=== PATIENT | male | born 1940 | race Caucasian/White ===

== ENCOUNTER 2022-11-24 09:06 | Inpatient (IN) ==
[2022-11-24] MEDS ORDERED: SODIUM CHLORIDE 0.9% 500 ML IV STA (09:39)
[2022-11-24] MEDS ORDERED: DILTIAZEM 25 MG/5 ML VIAL IV STA (09:39)
[2022-11-24 09:47] LABS: Basophils % 0.4 % (0.0-0.8); Eosinophils # 0.3 10*3/uL (0.0-0.87); Eosinophils % 4.1 % (0.00-10.9); Hematocrit 38.3 VOL% (42.0-52.0); Hemoglobin 12.2 GM/DL (14.0-18.0); Immature Granulocytes % 0.6 %; Immature Granulocytes Absolute 0.04 #; Lymphocytes # 1.9 10*3/uL (1.4-4.0); Lymphocytes % 26.2 % (21.2-54.2); Mean Corpuscular HGB Conc 31.9 GM/DL (32-36); Mean Corpuscular Volume 94.1 FL (87-102); Monocytes # 0.6 10*3/uL (0.11-0.8); Monocytes % 8.2 % (1.7-12.7); Neutrophils % 60.5 % (38.7-73.9); Platelet Count 241 T/CUMM (130-400); Red Blood Count 4.07 MC/CUMM (3.8-5.5); Red Cell Distribution Width 14.5 % (9.3-17.3); White Blood Count 7.1 T/CUMM (4-12)
[2022-11-24] MEDS: DILTIAZEM INJ 100 MG in SODIUM CHLORIDE 0.9% 100 ML IV SCH (09:53)
[2022-11-24 09:56] LABS: INR 0.9; PT Patient Result 10.3 SECS (10.1-12.1)
[2022-11-24 10:10] LABS: Alanine Aminotransferase 24 U/L (16-61); Albumin 3.7 G/DL (3.4-5.0); Alkaline Phosphatase 114 U/L (45-117); Aspartate Amino Transferase 13 U/L (0-37); Bilirubin,Total < 0.39 MG/DL (0.20-1.00); Blood Urea Nitrogen 29 MG/DL (7-18); Calcium 9.4 MG/DL (8.5-10.1); Carbon Dioxide 29 MMOL/L (21-32); Chloride 103 MMOL/L (98-107); Glucose 293 MG/DL (74-106); Osmolality,Calculated 291.7 MOS/KG (273-304); Potassium 5.2 MMOL/L (3.5-5.1); Sodium 138 MMOL/L (136-145)
[2022-11-24] MEDS ORDERED: GLUCAGON 1 MG VIAL IM PRN (10:43)
[2022-11-24] MEDS ORDERED: ONDANSETRON 4 MG/2 ML VIAL IV PRN (10:43)
[2022-11-24] MEDS ORDERED: ACETAMINOPHEN 325 MG TABLET PO PRN (10:43)
[2022-11-24] MEDS ORDERED: DEXTROSE 10% 250 ML BAG IV PRN (10:53)
[2022-11-24] MEDS ORDERED: MORPHINE 2 MG/1 ML SYRINGE IV PRN (11:04)
[2022-11-24] MEDS ORDERED: LEVALBUTEROL 1.25 MG/3 ML NEB RESP TX ONE (11:48)
[2022-11-24] MEDS ORDERED: GABAPENTIN 300 MG CAPSULE ONE (11:54)
[2022-11-24] MEDS: ENOXAPARIN 100 MG/ML SYRINGE SUBCUT SCH ×2 (11:57→22:06)
[2022-11-24] MEDS: LEVALBUTEROL 1.25 MG/3 ML NEB RESP TX SCH (13:00)
[2022-11-24] MEDS: INSULIN LISPRO 100 UNIT/ML SUBCUT SCH ×3 (13:34→22:20)
[2022-11-24] MEDS: GABAPENTIN 300 MG CAPSULE PO SCH ×2 (15:22→22:07)
[2022-11-24] MEDS: DILTIAZEM 60 MG TABLET PO SCH ×2 (16:35→22:07)
[2022-11-25] MEDS: LEVALBUTEROL 1.25 MG/3 ML NEB RESP TX SCH ×5 (00:23→20:06)
[2022-11-25] MEDS: DILTIAZEM 60 MG TABLET PO SCH (03:54)
[2022-11-25 05:12] LABS: Basophils % 0.5 % (0.0-0.8); Eosinophils # 0.4 10*3/uL (0.0-0.87); Eosinophils % 5.7 % (0.00-10.9); Hematocrit 33.5 VOL% (42.0-52.0); Hemoglobin 10.5 GM/DL (14.0-18.0); Immature Granulocytes % 0.5 %; Immature Granulocytes Absolute 0.03 #; Lymphocytes % 32.1 % (21.2-54.2); Mean Corpuscular HGB Conc 31.3 GM/DL (32-36); Mean Corpuscular Volume 94.1 FL (87-102); Mean Platelet Volume 9.9 FL (9.6-12.0); Monocytes # 0.5 10*3/uL (0.11-0.8); Monocytes % 7.8 % (1.7-12.7); Neutrophils % 53.4 % (38.7-73.9); Platelet Count 207 T/CUMM (130-400); Red Blood Count 3.56 MC/CUMM (3.8-5.5); Red Cell Distribution Width 14.6 % (9.3-17.3); White Blood Count 6.1 T/CUMM (4-12)
[2022-11-25 05:31] LABS: Alanine Aminotransferase 19 U/L (16-61); Albumin 3.1 G/DL (3.4-5.0); Alkaline Phosphatase 96 U/L (45-117); Aspartate Amino Transferase 9 U/L (0-37); Bilirubin,Total < 0.39 MG/DL (0.20-1.00); Blood Urea Nitrogen 25 MG/DL (7-18); Carbon Dioxide 27 MMOL/L (21-32); Chloride 107 MMOL/L (98-107); Cholesterol 114 MG/DL (50-200); Glucose 198 MG/DL (74-106); HDL Cholesterol 51 MG/DL (40-60); Osmolality,Calculated 288.4 MOS/KG (273-304); Potassium 4.4 MMOL/L (3.5-5.1); Risk Ratio 2.24; Sodium 140 MMOL/L (136-145); Triglycerides 109 MG/DL (2-150); VLDL Cholesterol 21.8 MG/DL
[2022-11-25 08:29] LABS: % Iron Saturation 22.9 % (18-50); Ferritin 31.1 ng/mL (26-388)
[2022-11-25 08:31] LABS: Folate 13.29 NG/ML (5.38-24.0)
[2022-11-25] MEDS: PANTOPRAZOLE 40 MG TABLET PO SCH (10:07)
[2022-11-25] MEDS: SOTALOL 80 MG TABLET PO SCH ×2 (10:07→21:59)
[2022-11-25] MEDS: GABAPENTIN 300 MG CAPSULE PO SCH ×3 (10:08→21:58)
[2022-11-25] MEDS: APIXABAN 5 MG TABLET PO SCH ×2 (10:08→21:59)
[2022-11-25] MEDS: CLOPIDOGREL 75 MG TABLET PO SCH (10:08)
[2022-11-25] MEDS: INSULIN LISPRO 100 UNIT/ML SUBCUT SCH ×4 (10:12→21:57)
[2022-11-25] MEDS: DILTIAZEM INJ 100 MG in SODIUM CHLORIDE 0.9% 100 ML IV SCH (11:03)
[2022-11-25] MEDS: SIMVASTATIN 40 MG TABLET PO SCH (21:57)
[2022-11-25] MEDS: oxyCODONE/ACETAMINOPHEN 5-325 MG TABLET PO SCH (21:58)
[2022-11-25] MEDS: LATANOPROST 0.005% OPH SOLN 2.5 ML BOTTLE BOTH EYES SCH (21:59)
[2022-11-25] MEDS: INSULIN GLARGINE 100 UNIT/ML SUBCUT SCH (21:59)
[2022-11-26] MEDS: LEVALBUTEROL 1.25 MG/3 ML NEB RESP TX SCH ×4 (00:50→19:15)
[2022-11-26 06:10] LABS: Calcium 9.4 MG/DL (8.5-10.1); Osmolality,Calculated 281.7 MOS/KG (273-304); Potassium 4.3 MMOL/L (3.5-5.1)
[2022-11-26] MEDS: CLOPIDOGREL 75 MG TABLET PO SCH (09:34)
[2022-11-26] MEDS: GABAPENTIN 300 MG CAPSULE PO SCH ×3 (09:34→20:45)
[2022-11-26] MEDS: PANTOPRAZOLE 40 MG TABLET PO SCH (09:35)
[2022-11-26] MEDS: oxyCODONE/ACETAMINOPHEN 5-325 MG TABLET PO SCH ×2 (09:35→20:45)
[2022-11-26] MEDS: SOTALOL 80 MG TABLET PO SCH ×2 (09:35→20:45)
[2022-11-26] MEDS: DULoxetine 30 MG CAPSULE PO SCH (09:35)
[2022-11-26] MEDS: APIXABAN 5 MG TABLET PO SCH ×2 (09:36→20:45)
[2022-11-26] MEDS: ROSUVASTATIN 20 MG TABLET PO SCH (09:38)
[2022-11-26] MEDS: INSULIN LISPRO 100 UNIT/ML SUBCUT SCH ×4 (09:38→20:45)
[2022-11-26] MEDS: DILTIAZEM INJ 100 MG in SODIUM CHLORIDE 0.9% 100 ML IV SCH (11:52)
[2022-11-26] MEDS: LATANOPROST 0.005% OPH SOLN 2.5 ML BOTTLE BOTH EYES SCH (20:45)
[2022-11-26] MEDS: INSULIN GLARGINE 100 UNIT/ML SUBCUT SCH (20:45)
[2022-11-26] MEDS: SIMVASTATIN 40 MG TABLET PO SCH (20:45)
[2022-11-26] MEDS: ZINC OXIDE PASTE 113 GM TUBE TOP SCH (20:45)
[2022-11-27] MEDS: LEVALBUTEROL 1.25 MG/3 ML NEB RESP TX SCH ×4 (00:21→19:39)
[2022-11-27] MEDS: SOTALOL 80 MG TABLET PO SCH ×2 (11:18→20:41)
[2022-11-27] MEDS: ROSUVASTATIN 20 MG TABLET PO SCH (11:18)
[2022-11-27] MEDS: DULoxetine 30 MG CAPSULE PO SCH (11:18)
[2022-11-27] MEDS: INSULIN LISPRO 100 UNIT/ML SUBCUT SCH ×4 (11:18→20:40)
[2022-11-27] MEDS: CLOPIDOGREL 75 MG TABLET PO SCH (11:19)
[2022-11-27] MEDS: ZINC OXIDE PASTE 113 GM TUBE TOP SCH ×2 (11:19→20:41)
[2022-11-27] MEDS: APIXABAN 5 MG TABLET PO SCH ×2 (11:19→20:41)
[2022-11-27] MEDS: oxyCODONE/ACETAMINOPHEN 5-325 MG TABLET PO SCH ×2 (11:19→20:40)
[2022-11-27] MEDS: DILTIAZEM INJ 100 MG in SODIUM CHLORIDE 0.9% 100 ML IV SCH (11:19)
[2022-11-27] MEDS: GABAPENTIN 300 MG CAPSULE PO SCH (11:19)
[2022-11-27] MEDS: PANTOPRAZOLE 40 MG TABLET PO SCH (11:19)
[2022-11-27] MEDS ORDERED: LACTOBACILLUS ACIDOPHILUS/BULGARICUS 1 PACKET PO SCH (15:00)
[2022-11-27] MEDS ORDERED: CLINDAMYCIN 300 MG CAPSULE PO SCH (15:00)
[2022-11-27] MEDS: LATANOPROST 0.005% OPH SOLN 2.5 ML BOTTLE BOTH EYES SCH (20:41)
[2022-11-27] MEDS: GABAPENTIN 600 MG TABLET PO SCH (20:41)
[2022-11-27] MEDS ORDERED: INSULIN GLARGINE 100 UNIT/ML SUBCUT SCH (21:00)
[2022-11-28] MEDS: LEVALBUTEROL 1.25 MG/3 ML NEB RESP TX SCH ×2 (00:15→08:14)
[2022-11-28 05:47] LABS: Basophils % 0.4 % (0.0-0.8); Eosinophils # 0.5 10*3/uL (0.0-0.87); Eosinophils % 6.2 % (0.00-10.9); Hemoglobin 11.4 GM/DL (14.0-18.0); Immature Granulocytes % 0.3 %; Immature Granulocytes Absolute 0.02 #; Lymphocytes # 1.9 10*3/uL (1.4-4.0); Lymphocytes % 26.3 % (21.2-54.2); Mean Corpuscular HGB Conc 31.7 GM/DL (32-36); Mean Corpuscular Volume 93.3 FL (87-102); Mean Platelet Volume 10.1 FL (9.6-12.0); Monocytes # 0.7 10*3/uL (0.11-0.8); Monocytes % 9.6 % (1.7-12.7); Neutrophils % 57.2 % (38.7-73.9); Platelet Count 230 T/CUMM (130-400); Red Blood Count 3.86 MC/CUMM (3.8-5.5); Red Cell Distribution Width 14.3 % (9.3-17.3); White Blood Count 7.4 T/CUMM (4-12)
[2022-11-28 06:22] LABS: Calcium 9.5 MG/DL (8.5-10.1); Osmolality,Calculated 280.5 MOS/KG (273-304); Potassium 4.4 MMOL/L (3.5-5.1)
[2022-11-28] MEDS ORDERED: propofoL 200 MG/20 ML VIAL IV ONE (07:23)
[2022-11-28] MEDS ORDERED: LIDOCAINE 2% 5 ML VIAL ONE (07:23)
[2022-11-28 08:06] VITALS: BP 132/78
[2022-11-28] MEDS: INSULIN LISPRO 100 UNIT/ML SUBCUT SCH (08:06)
[2022-11-28] MEDS ORDERED: FUROSEMIDE 40 MG TABLET PO SCH (09:00)
[2022-11-28] MEDS ORDERED: DAPAGLIFLOZIN 10 MG TABLET PO SCH (09:00)
[2022-11-28] MEDS: DULoxetine 30 MG CAPSULE PO SCH (10:14)
[2022-11-28] MEDS: SOTALOL 80 MG TABLET PO SCH (10:14)
[2022-11-28] MEDS: ROSUVASTATIN 20 MG TABLET PO SCH (10:14)
[2022-11-28] MEDS: DILTIAZEM INJ 100 MG in SODIUM CHLORIDE 0.9% 100 ML IV SCH (10:15)
[2022-11-28] MEDS: APIXABAN 5 MG TABLET PO SCH (10:15)
[2022-11-28] MEDS: GABAPENTIN 600 MG TABLET PO SCH (10:15)
[2022-11-28] MEDS: CLOPIDOGREL 75 MG TABLET PO SCH (10:15)
[2022-11-28] MEDS: PANTOPRAZOLE 40 MG TABLET PO SCH (10:15)
[2022-11-28] MEDS: oxyCODONE/ACETAMINOPHEN 5-325 MG TABLET PO SCH (10:15)
[2022-11-28] MEDS: ZINC OXIDE PASTE 113 GM TUBE TOP SCH (10:15)
== END 2022-11-28 11:08 | disposition home health service (06) | DRG 309 ==
LOC: N.EDINP 09:06 → N.ED 09:06 → N.EDINP 13:35 → N.TELEN 14:14 → SUATTDRO 11-25 10:56
PROVIDERS: ADMIT Internal Medicine; ATTEND Internal Medicine Cardiovascular Disease